=== PATIENT | male | born 1985 | race Two or more races ===

== ENCOUNTER → 2022-08-08 | Emergency (ER) | payer OTHER ==
[~2022-08-08] VITALS: Ht 167.6 cm; Wt 83.9 kg
[~2022-08-08] MED LIST: HORIZANT300 MG; KETO10TA2 PO; LYRICA50 MG; NORFLEX100MG PO
== END | disposition home or self-care (01) ==
LOC: ER 08:30
DX: M54.50 Low back pain, unspecified (principal)